=== PATIENT | female | born 1985 | race Two or more races ===

== ENCOUNTER 2023-02-08 09:25 | Outpatient (CLI) | payer OTHER ==
[~2023-02-08 09:25] MED LIST: SYNTHROID100 MCG PO
== END 2023-02-08 09:27 | disposition home or self-care (01) ==
LOC: SONOGRAMA 09:25
PROVIDERS: ATTEND Pathology Anatomic Pathology & Clinical Pathology
DX: E04.1 Nontoxic single thyroid nodule (principal); D34 Benign neoplasm of thyroid gland